=== PATIENT | female | born 1950 | race Caucasian/White ===

== ENCOUNTER 2016-12-13 07:44 | Day surgery (SDC) | payer OTHER, MEDICAID ==
[2016-12-13] MEDS ORDERED: D5 LR 1000 ML 1,000 ML IV ONE (08:19)
[2016-12-13] MEDS ORDERED: DIPRIVAN VIAL 20 ML ONE (09:47)
[2016-12-13 10:17] VITALS: BP 110/60
== END 2016-12-13 10:22 | disposition home or self-care (01) ==
LOC: SURG1 07:44
PROVIDERS: ATTEND Internal Medicine Gastroenterology
PROC: 0DB88ZX Excision of Small Intestine, Via Natural or Artificial Opening Endoscopic, Diagnostic (ICD-10-PCS; principal; 2016-12-13 10:00)
PROC: 0DB68ZX Excision of Stomach, Via Natural or Artificial Opening Endoscopic, Diagnostic (ICD-10-PCS; principal; 2016-12-13 10:00)
PROC: 0DJ08ZZ Inspection of Upper Intestinal Tract, Via Natural or Artificial Opening Endoscopic (ICD-10-PCS; principal; 2016-12-13 10:00)
DX: R11.2 Nausea with vomiting, unspecified (principal); R10.13 Epigastric pain; K21.9 Gastro-esophageal reflux disease without esophagitis; K20.8 Other esophagitis; K29.60 Other gastritis without bleeding; K57.10 Diverticulosis of small intestine without perforation or abscess without bleeding
CPT/HCPCS: A4217; J3490; J7120

== ENCOUNTER → 2016-12-24 | Outpatient (CLI) | payer OTHER, MEDICAID ==
[2016-12-13 10:17] VITALS: BP 110/60
[2016-12-27 07:03] LABS: RNP ANTIBODY 0 AU/mL (0-40)
== END ==
LOC: LAB 09:04
PROVIDERS: ATTEND Nurse Practitioner Family
DX: R76.8 Other specified abnormal immunological findings in serum (principal)
CPT/HCPCS: 36415; 86140; 86235; 86256

== ENCOUNTER 2017-01-07 19:00 | Emergency (ER) | payer OTHER, MEDICAID ==
[2017-01-07 19:08] VITALS: BP 149/69; BMI 43.1
--- NOTE | 2017-01-07 19:34 | DR.GENAD ---
HPI - PCP Primary Care Physician: Cj - Complaint/Symptoms Chief Complaint Doctors Comments: Agree with statement. Patient admits to bruising right lateral forearm and elbow just prior to ED visit. The area is tender to touch, pain 8 moderate; aggravated with motion,duration hours. Chief Complaint:: "I missed the last step and fell and hurt my right arm. It scrapped it up and it looks really bruised. I went to the doctor and he sent me here for xrays." - Source History Provided: Patient - Mode of Arrival Mode of Arrival: Ambulatory - Timing Onset of Chief Complaint: 01/07/17 PMH - PMH Past Medical History: Yes Past Medical History: Anemia, Arthritis, GERD, Hypertension Past Surgical History: Yes Surgical History: Cholecystectomy, [employer]MI[employer] Surgery, Ortho Surgery Past Surgical History Comment: Bone graft right leg, Hernia repair, Lower back surgery, Left shoulder surgery, Right carpal tunnel surgery. - Family History History of Family Medical Conditions: No - Social History Does patient currently use any type of tobacco product: No Have you used tobacco products in the last 12 months: No Type of Tobacco Use: None Does any household member use tobacco: No Alcohol Use: None Do you use any recreational Drugs:: No Lives With: Alone Lives Where: Home - infectious screening In the last 2 months have you had wt loss of >10#?: NO Have you had fever, night sweats or hemotysis?: No Have you traveled outside the country in the last 6 months?: No Isolation: Standard ROS - Review of Systems Constitutional: No Symptoms Reported Eyes: No Symptoms Reported ENTM: No Symptoms Reported Respiratoy: No Symptoms Reported Cardiovascular: No Symptoms Reported Gastrointestinal/Abdominal: No Symptoms Reported Genitourinary: No Symptoms Reported Neurological: No Symptoms Reported Musculoskeletal: Elbow (Abrasion of right elbow) Integumentary: No Symptoms Reported Hematologic/Lymphatic: No Symptoms Reported Endocrine: No Symptoms Reported Psychiatric: No Symptoms Reported All Other Systems: Reviewed and Negative PE - Vital Signs Vitals: Temperature 100.8 F Pulse Rate 98 Respiratory Rate 18 Blood Pressure 149/69 O2 Sat by Pulse Oximetry 95 - General Limitations: No Limitations General Appearance: Alert, In No Apparent Distress - Head Head Exam: Normal Inspection, Atraumatic - Eyes Eye exam: Normal Appearance, PERRL, EOMI - ENT ENT Exam: Normal Exam External Ear Exam: Normal External Inspection TM/Canal Exam: Bilateral Normal Nose Exam: Normal Nose Exam Mouth Exam: Normal Inspection Throat Exam: Normal Inspection - Neck Neck Exam: Normal Inspection - Chest Chest Inspection: Normal Inspection - Respiratory Respiratory Exam: Normal Lung Sounds Bilat Respiratory Exam: Bilateral Clear to Auscultation - Cardiovascular Cardiovascular Exam: Regular Rate, Normal Rhythm - Abdominal Exam Abdominal Exam: Normal Inspection Abdominal Tenderness: negative: RUQ, RLQ, LUQ, LLQ, Epigastrium, Suprapubic, Diffuse, Mild, Moderate, Severe, Other - Extremities Extremities Exam: Other (right proximal forearm laterally with triangular skin flap superficially) - Back Back Exam: Normal Inspection - Neurologic Neurological Exam: Alert, Oriented X3, CN II-XII Intact - Psychiatric Psychiatric Exam: Normal Affect, Normal Mood - Skin Skin Exam: Warm, Dry, Mottled ROR - XRAY XRAY Interpreted by: Radiologist (Elbow: no evidence of fracture or dislocation) Procedures - Laceration/Wound Repair Right Elbow Wound Length (cm): 6 Wound's Depth, Shape: Superficial, Stellate Wound Explored: clean Betadine Prep?: No Wound Debrided: minimal Wound Repaired With: Dermabond - Diagnosis Discharge Problem: Abrasion, forearm without infection - Discharge Plan Condition: Stable - Follow ups/Referrals Follow ups/Referrals: MIKE PABLO [Primary Care Provider] - 3 days - Instructions
--- NOTE | 2017-01-07 20:05 | RAD ---
ELBOW RADIOGRAPHS CLINICAL HISTORY: 66-year-old female status post fall with right elbow pain. COMPARISON: None. FINDINGS: 3 views of the right elbow demonstrate no acute fracture or malalignment. Soft tissue berna a about the elbow. The joint spaces are maintained. There is no joint effusion. The mineralization is normal. There is no aggressive bone lesion or abnormal periosteal reaction. There is no soft ti ssue calcification or gas. IMPRESSION: No acute fracture or osseous abnormality demonstrated on right elbow radiographs with soft tissue ed allan present. Reported By:
[2017-01-07] MEDS ORDERED: BENZOIN COMPOUND TINCTURE ONE (20:14)
== END 2017-01-07 20:37 | disposition home or self-care (01) ==
LOC: ER 19:13
PROC: 2W38X1Z Immobilization of Right Upper Extremity using Splint (ICD-10-PCS; principal; 2017-01-07)
DX: S50.811A Abrasion of right forearm, initial encounter (principal); W10.9XXA Fall (on) (from) unspecified stairs and steps, initial encounter; Y92.9 Unspecified place or not applicable
CPT/HCPCS: 12002; 73070; 99282; 99283

== ENCOUNTER → 2017-01-17 | Outpatient (CLI) | payer OTHER, MEDICAID ==
[2017-01-07 19:08] VITALS: BP 149/69
--- NOTE | 2017-01-17 11:27 | RAD ---
HISTORY: Shortness of breath Study: Chest two-view Comparison: None Findings: The trachea is midline. The cardiac silhouette is unremarkable. The lungs are clear without focal infiltrate or effusion. The bony thorax is unremarkable. IMPRESSION: 1. No acute cardiopulmonary disease. Reported By:
[2017-01-17 12:25] LABS: BASOPHILS % (AUTO) 0.3 % (0.2-1.0); EOSINOPHILS # (AUTO) 0.1 x10^3/uL (0.0-0.2); EOSINOPHILS % (AUTO) 1.1 % (0.9-2.9); HEMATOCRIT 40.8 % (36.0-47.0); HEMOGLOBIN 13.3 g/dL (12.0-16.0); LYMPHOCYTES # (AUTO) 5.4 X10^3/uL (1.3-2.9); LYMPHOCYTES % (AUTO) 41.7 % (21.0-51.0); MEAN CORPUSCULAR HEMOGLOBIN 27.5 pg (27.0-34.0); MEAN CORPUSCULAR HGB CONC 32.7 g/dL (33.0-35.0); MEAN CORPUSCULAR VOLUME 84.1 fL (80.0-100.0); MEAN PLATELET VOLUME 9.1 fL (7.4-11.0); MONOCYTES # (AUTO) 0.9 x10^3/uL (0.3-0.8); MONOCYTES % (AUTO) 6.9 % (0.0-13.0); NEUTROPHILS # (AUTO) 6.4 x10^3/uL (2.2-4.8); PLATELET COUNT 307 X10^3/uL (150.0-450.0); RED BLOOD COUNT 4.85 X10^6/uL (3.5-5.4); RED CELL DISTRIBUTION WIDTH 15.6 % (11.6-16.5); RETICULOCYTE % 0.84 % (0.8-2.2); WHITE BLOOD COUNT 12.8 X10^3/uL (3.6-10.0)
[2017-01-17 12:26] LABS: CREATININE,URINE 101.13 mg/dL (29-226); MICROALBUMIN,URINE 5.1 mg/L
[2017-01-17 12:28] LABS: HEMOGLOBIN A1C 6.4 % (4.5-6.2)
[2017-01-17 12:33] LABS: ALANINE AMINOTRANSFERASE 19 Units/L (12-78); ALKALINE PHOSPHATASE 100 Units/L (46-116); ASPARTATE AMINO TRANSFERASE 18 Units/L (15-37); BLOOD UREA NITROGEN 15 mg/dL (7-18); CALCIUM 8.8 mg/dL (8.5-10.1); CARBON DIOXIDE 25.8 mmol/L (21-32); CHLORIDE 105 mmol/L (98-107); CHOL/HDL RATIO 3.9 (0.0-5.0); CHOLESTEROL 129 mg/dL (0-200); COR CA(FOR HYPOALB) 9.6 mg/dL (8.5-10.1); CREATININE 0.84 mg/dL (0.55-1.02); GLUCOSE 104 mg/dL (65-99); HDL CHOLESTEROL 33 mg/dL (40-60); SODIUM 139 mmol/L (136-145); TOTAL PROTEIN 8.2 g/dL (6.4-8.2); TRIGLYCERIDES 86 mg/dL (0-150); eGFR BLACK RACES > 60 (>60); eGFR NON BLACK RACES > 60 (>60)
[2017-01-17 14:09] LABS: ERYTHROCYTE SEDIMENTATION RATE 58 MM/HOUR (0-20)
[2017-01-17 14:47] LABS: RHEUMATOID FACTOR NEGATIVE (NEGATIVE)
[2017-01-21 13:13] LABS: METHYLMALONIC ACID 0.21 umol/L (0.00-0.40); VITAMIN D 25 OH 13 ng/mL (30-80)
== END ==
LOC: LAB 11:01
PROVIDERS: ATTEND Nurse Practitioner Family
DX: I10 Essential (primary) hypertension (principal); E78.4 Other hyperlipidemia; E56.8 Deficiency of other vitamins; R63.1 Polydipsia; D64.89 Other specified anemias; R06.02 Shortness of breath
CPT/HCPCS: 36415; 71020; 80053; 80061; 82043; 82306; 82607; 82615; 82746; 83036; 83918; 85025; 85045; 85652; 86140; 86200; 86256; 86340; 86430

== ENCOUNTER → 2017-04-15 | Outpatient (CLI) | payer OTHER, MEDICAID ==
--- NOTE | 2017-04-15 12:37 | RAD ---
Two views of the right foreleg Indication: Right leg pain with previous fracture infection Findings: There is postsurgical deformity with or section of the mid fibular diaphysis. There is sev ere posttraumatic deformity and anterior bowing of the distal tibial diaphysis and metaphysis. A par tial percutaneous pin remains in place within the fracture deformity of the distal tibial diaphysis. 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 No localizing soft tissue swelling, gas or evidence of acute fracture iden tified. Moderate tricompartmental osteoarthrosis of the right knee. Impression: See above. Reported By:
== END ==
LOC: RAD 11:44
PROVIDERS: ATTEND Emergency Medicine Undersea and Hyperbaric Medicine
DX: S81.801A Unspecified open wound, right lower leg, initial encounter (principal); X58.XXXA Exposure to other specified factors, initial encounter; M17.11 Unilateral primary osteoarthritis, right knee
CPT/HCPCS: 73590

== ENCOUNTER → 2017-11-22 | Outpatient (CLI) | payer OTHER, MEDICAID ==
--- NOTE | 2017-11-24 15:44 | MRI ---
History: Low-back pain, history of lumbar disc repair Study: MRI lumbar spine without IV contrast Findings: Multiple sequences/imaging planes were used to evaluate the lumbar spine without IV contras t. There is no fracture or destructive marrow signal identified. The conus ends at the T12-L1 disc space level. It appears of normal signal. The overall disc space heights appear maintained. At T12-L1, there is no central or foraminal stenosis. Mild facet hypertrophy is identified. At L1-L2, moderate facet arthrosis is seen without central or foraminal stenosis. At L2-L3, moderate facet hypertrophy is seen without central or foraminal stenosis. At L3-L4, there is marked facet arthrosis identified. There is a prominent central canal stenosis see n. There is the suggestion of moderate foraminal stenosis on the right. At L4-L5, moderate facet hypertrophy is seen with mild foraminal stenosis. There is some low lateral encroachment upon the right aspect of the thecal sac cause by the prominent facet hypertrophy. At L5-S1, moderate facet hypertrophy is seen. No central or foraminal stenosis is evident. Impression: 1. Moderate to prominent facet arthrosis. 2. Prominent central canal stenosis L3-L4 with at least moderate foraminal stenosis on the right. 3. At L4-L5, moderate facet hypertrophy with mild foraminal stenosis. There appears to be some compre ssion of the thecal sac on the right and facet joint level. Reported By:
== END ==
LOC: RAD 14:59
PROVIDERS: ATTEND Psychiatry & Neurology Neurology
DX: M47.816 Spondylosis without myelopathy or radiculopathy, lumbar region (principal)
CPT/HCPCS: 72148

== ENCOUNTER → 2017-11-27 | Outpatient (CLI) | payer OTHER, MEDICAID ==
--- NOTE | 2017-11-28 10:18 | MG ---
HISTORY: SCREENING Comparison: September 24, 2012 and May 03, 2016 FINDINGS: Bilateral CC and MLO projections of the right and left breast were obtained. Scattered fibroglandula r tissue is seen to be present without significant interval change. No suspicious architectural dist ortion, mass or clustered microcalcifications can be observed to suggest malignancy. No skin thicken ing or nipple retraction is appreciated. No pathological lymphadenopathy can be identified. Benign- appearing calcifications are noted within the right and left breast. IMPRESSION: NO RADIOGRAPHIC EVIDENCE OF MALIGNANCY. ACR CATEGORY 2 - benign findings. FOLLOW-UP EXAM 1 YEAR. Diagnostic CAD was utilized and reviewed. * 0 (ZERO) - ASSESSMENT INCOMPLETE; ADDITIONAL IMAGING IS NEEDED. * 1/1 (ONE) - NEGATIVE. * 2/II (TWO) - BENIGN FINDINGS. * 3/III (THREE) - PROBABLY BENIGN FINDING; SHORT INTERVAL FOLLOW-UP SUGGESTED. * 4/IV (FOUR) - SUSPICIOUS ABNORMALITY; BIOPSY SHOULD BE CONSIDERED. * 5/V - HIGHLY SUSPICIOUS OF MALIGNANCY; BIOPSY SHOULD BE PERFORMED. A NEGATIVE X-RAY REPORT SHOULD NOT DELAY BIOPSY IF A DOMINANT OR CLINICALLY SUSPICIOUS MASS IS PRESENT; 4 TO 8 PERCENT OF CANCERS ARE NOT IDENTIFIED BY X-RAY. A NEGA TIVE REPORT MAY REINFORCE THE CLINICAL IMPRESSION. ADENOSIS AND DENSE BREASTS MAY OBSCURE AN UNDERLY ING NEOPLASM. Reported By:
== END ==
LOC: RAD 13:15
PROVIDERS: ATTEND Psychiatry & Neurology Neurology
DX: Z12.31 Encounter for screening mammogram for malignant neoplasm of breast (principal)
CPT/HCPCS: 77067

== ENCOUNTER → 2017-12-18 | Outpatient (CLI) | payer OTHER, MEDICAID ==
--- NOTE | 2017-12-18 12:06 | RAD ---
HISTORY: Chronic right shoulder pain. Study: Right shoulder: Three views Comparison: 10/26/2010 Findings: Moderate acromioclavicular joint degeneration is noted. There is spurring from the inferior AC joint . Mild sclerosis is noted at the rotator cuff insertion. [id number] glenohumeral joint degene ration is noted. No acute bony abnormalities are identified. IMPRESSION: 1. Degenerative change in the right shoulder described above showing interval progression when alma red to the prior examination. 2. No acute bony abnormalities are identified. Reported By:
== END ==
LOC: RAD 11:46
PROVIDERS: ATTEND Psychiatry & Neurology Neurology
DX: M75.52 Bursitis of left shoulder (principal)
CPT/HCPCS: 73030